=== PATIENT | female | born 1995 | race Caucasian/White ===

== ENCOUNTER 2017-11-04 08:00 | Outpatient (CLI) | payer BC | END 2017-11-04 08:01 | LOC: LAB.N 08:00 | PROVIDERS: ATTEND Obstetrics & Gynecology | DX: Z32.01 Encounter for pregnancy test, result positive (principal) | CPT/HCPCS: 36415; 84702 ==

== ENCOUNTER 2017-11-11 13:35 | Outpatient (CLI) | payer BC | END 2017-11-11 13:36 | LOC: LAB.N 13:35 | PROVIDERS: ATTEND Obstetrics & Gynecology | DX: Z32.01 Encounter for pregnancy test, result positive (principal) | CPT/HCPCS: 36415; 84702 ==

== ENCOUNTER 2017-11-15 21:55 | Outpatient (CLI) | payer BC ==
--- NOTE | 2017-11-15 23:19 | Ultrasound Report ---
EXAM: FIRST TRIMESTER OBSTETRIC ULTRASOUND (Less than 11 weeks) EXAM DATE: 11/15/2017 09:59 PM. CLINICAL HISTORY: Pain LMP: 09/18/2017. COMPARISONS: None. TECHNIQUE: Transabdominal and transvaginal ultrasound examination with static image documentation. CLINICAL DATES: EGA 8 weeks 2 days with IKE 06/25/2018 based on LMP. ASSESSMENT: Gestational Sac: Single intrauterine. Mean gestational sac diameter: 40 mm = 9 weeks 3 days. Embryo: CRL (crown-rump length) 8.6 mm = 7 weeks 0 days. Cardiac activity: 128 beats per minute. Yolk sac: Not visualized. Amniotic fluid: Not accurately assessed at this gestational age. Early placenta: Not visible at this gestational age. Other: No perigestational fluid collection demonstrated. MATERNAL STRUCTURES: Uterus: Anteverted. Unremarkable. Cervix: Closed. Right Ovary/Adnexa: Unremarkable. The ovary measures 3.3 x 3.2 x 2.6 cm, volume 14 cc. Left Ovary/Adnexa: There is a 4.4 cm hemorrhagic cyst in the left ovary, as well as a second, smaller cystic structure, likely representing the corpus luteum.. The ovary measures 5.9 x 5.8 x 4.1 cm, vo lume 73 cc. Free Fluid: None. Other: None. IMPRESSION: 1. Single viable intrauterine at EGA 7 weeks 0 days with IKE 07/04/2018 based on crown-rump length, which is 9 days earlier than expected with clinical dates. 2. Assigned dating is IKE 07/04/2017 based on current ultrasound. Results called to Dr. Dickinson on 11/15/2017 at 11:15 PM. [facility] Referring Provider Line: [phone] SITE ID: [id number]
== END 2017-11-15 21:56 | disposition home or self-care (01) ==
LOC: DI 21:55
PROVIDERS: ATTEND Obstetrics & Gynecology
DX: Z3A.01 Less than 8 weeks gestation of pregnancy (principal)
CPT/HCPCS: 76801; 76817

== ENCOUNTER 2017-12-08 16:49 | Outpatient (CLI) | payer BC ==
--- NOTE | 2017-12-09 10:04 | Ultrasound Report ---
Procedure Date: 12/08/2017 Accession Number: [id number] / [id number] Procedure: US - Pelvic w/Transvaginal CPT Code: FULL RESULT: EXAM: PELVIC ULTRASOUND EXAM DATE: 12/08/2017 06:07 PM. CLINICAL HISTORY: Pelvic and perineal pain. COMPARISON: First trimester obstetric ultrasound 11/15/2017. TECHNIQUE: Realtime transabdominal pelvic scan performed to identify the uterus and adnexa and as an overview of other pelvic structures, followed by transvaginal scan to provide greater detail of the uterus and adnexa, with static image documentation. FINDINGS: Uterus: 9.3 x 4.5 x 3.8 cm, volume 83 cc. Anteverted position. Normal overall size and echotexture. Masses: None. Endometrium: 9 mm. 2 foci of posterior endometrial vascularity are noted, one of which extends into posterior myometrium on color Doppler image 50. Spectral Doppler imaging of the hyperemic endometrial regions was not performed. Multiple small echogenic foci along the endometrium. Cervix: Unremarkable. Right Ovary: 3.3 x 2.8 x 2.2 cm, volume 11 cc. 1.2 x 0.7 x 0.6 cm corpus albicans or collapsed follicle. Numerous small peripheral follicles. Normal echotexture and blood flow. Left Ovary: Left ovary was not definitively identified. There is a large, heterogeneous left adnexal abnormality measuring 10.1 x 5.5 x 6.7 cm, 195 cc. Please see image 92 which demonstrates this abnormality contains at least two internal cystic areas, the larger cystic area measuring up to 4 x 3.4 cm. Color Doppler image 99 does not show significant vascularity within the left adnexal region. Free Fluid: Small amount of free fluid in cul-de-sac is likely physiologic. Other: None. IMPRESSION: 1. Large 10 cm left adnexal abnormality is worrisome for torsion. Ectopic would be less likely, given documented intrauterine on prior ultrasound and absence of in vitro fertilization. Present appearance is not typical for hemorrhagic ovarian cyst. 2. Areas of increased echogenicity and hyperemia along posterior myometrium, one of the areas of vascularity extends into posterior myometrium. Findings may be due to uterine arteriovenous malformation or retained products of conception. Recommend clinical correlation. 3. Prominent number of small peripheral right ovarian follicles, potential polycystic ovary morphology. CRITICAL RESULT: The findings were discussed with Dr. Moffett on 12/09/2017 at 9:48 AM. [facility]
== END 2017-12-08 16:50 | disposition home or self-care (01) ==
LOC: DI 16:49
PROVIDERS: ATTEND Registered Nurse
DX: R93.8 Abnormal findings on diagnostic imaging of other specified body structures (principal); R10.2 Pelvic and perineal pain; Z64.0 Problems related to unwanted pregnancy
CPT/HCPCS: 36415; 76830; 76856; 84702

== ENCOUNTER 2017-12-10 12:29 | Outpatient (CLI) | payer BC ==
[2017-12-10 13:00] LABS: BASOPHILS % (AUTO) 0.5 %; EOSINOPHILS # (AUTO) 0.1 10^3/uL (0.0-0.7); EOSINOPHILS % (AUTO) 1.5 %; HGB - HEMOGLOBIN 14.3 g/dL (12.0-16.0); LYMPHOCYTES # (AUTO) 3.5 10^3/uL (1.5-3.5); LYMPHOCYTES % (AUTO) 53.2 %; MEAN CORPUSCULAR HEMOGLOBIN 31.2 pg (27.0-31.0); MEAN CORPUSCULAR HGB CONC 34.3 g/dL (32.0-36.0); MEAN CORPUSCULAR VOLUME 90.9 fL (81.0-99.0); MEAN PLATELET VOLUME 6.7 fL (7.9-10.8); MONOCYTES # (AUTO) 0.7 10^3/uL (0.0-1.0); MONOCYTES % (AUTO) 10.1 %; NEUTROPHILS # (AUTO) 2.3 10^3/uL (1.5-6.6); NEUTROPHILS % (AUTO) 34.7 %; PLT - PLATELET COUNT 309 10^3/uL (130-450); RED BLOOD COUNT 4.59 10^6/uL (4.20-5.40); RED CELL DISTRIBUTION WIDTH 12.7 % (12.0-15.0); WHITE BLOOD COUNT 6.6 x10^3/uL (4.8-10.8)
[2017-12-10 14:28] LABS: ALBUMIN 3.9 g/dL (3.2-5.5); ALBUMIN/GLOBULIN RATIO 1.2 (1.0-2.2); BILIRUBIN,TOTAL 1.2 mg/dL (0.2-1.0); CREATININE 0.7 mg/dL (0.4-1.0); TOTAL PROTEIN 7.1 g/dL (6.7-8.2)
== END 2017-12-10 12:30 | disposition home or self-care (01) ==
LOC: LAB 12:29
PROVIDERS: ATTEND Registered Nurse
DX: R19.09 Other intra-abdominal and pelvic swelling, mass and lump (principal)
CPT/HCPCS: 36415; 80053; 84702; 85025; 86304

== ENCOUNTER 2017-12-14 12:04 | Outpatient (CLI) | payer BC ==
[2017-12-14] MEDS ORDERED: IOPAMIDOL-300 100 ML VIAL ONE (12:19)
[2017-12-14] MEDS ORDERED: IOPAMIDOL-300 50 ML VIAL ONE (12:19)
--- NOTE | 2017-12-14 15:21 | CT Report ---
Procedure Date: 12/14/2017 Accession Number: [id number] / [id number] Procedure: CT - Abdomen/Pelvis W/WO CPT Code: FULL RESULT: EXAM: Abdomen/Pelvis W/WO DATE: 12/14/2017 2:07 PM CLINICAL HISTORY: OTHER INTRA-ABDOMIANL PELVIC SWELLING, MASS KIM COMPARISON: Ultrasound 12/08/2017 TECHNIQUE: Routine helical CT imaging was performed through the abdomen and pelvis prior to and following IV contrast. IV contrast: 100 mL Isovue 300. Enteric contrast: Yes. Reconstructions: Coronal and sagittal. In accordance with CT protocol optimization, one or more of the following dose reduction techniques were utilized for this exam: automated exposure control, adjustment of mA and/or KV based on patient size, or use of iterative reconstructive technique. FINDINGS: Lung Bases: Unremarkable. Liver: Normal. No masses. Gallbladder/Bile Ducts: Unremarkable. Spleen: Normal. Pancreas: Normal. Adrenal Glands: Normal. Kidneys: Normal. No masses or hydronephrosis. Peritoneal Cavity/Bowel: Normal. No free fluid, free air or adenopathy. No masses or acute inflammatory process. The appendix is well visualized and normal. Pelvic Organs: There is a an 8.9 x 6.2 x 4.5 cm teratoma involving the left ovary, demonstrating fat, soft tissue, and calcification. The uterus and right ovary appear unremarkable. No free fluid or adenopathy. Vasculature: No aneurysms or other significant abnormality. Bones: No significant abnormality. Other: None. 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 Normal uterus and right ovary. RADIA
[2017-12-14] MEDS ORDERED: IOPAMIDOL-300 100 ML VIAL IVP ONE (15:55)
[2017-12-14] MEDS ORDERED: IOPAMIDOL-300 50 ML VIAL PO ONE (15:55)
== END 2017-12-14 12:05 | disposition home or self-care (01) ==
LOC: DI 12:04
PROVIDERS: ATTEND Registered Nurse
DX: R19.09 Other intra-abdominal and pelvic swelling, mass and lump (principal); D27.1 Benign neoplasm of left ovary
CPT/HCPCS: 74178; Q9967

== ENCOUNTER 2017-12-21 14:52 | Outpatient (CLI) | payer BC ==
[2017-12-21 15:07] LABS: BASOPHILS % (AUTO) 0.4 %; EOSINOPHILS # (AUTO) 0.1 10^3/uL (0.0-0.7); EOSINOPHILS % (AUTO) 1.4 %; HGB - HEMOGLOBIN 14.7 g/dL (12.0-16.0); LYMPHOCYTES # (AUTO) 3.7 10^3/uL (1.5-3.5); LYMPHOCYTES % (AUTO) 49.1 %; MEAN CORPUSCULAR HEMOGLOBIN 31.2 pg (27.0-31.0); MEAN CORPUSCULAR HGB CONC 34.3 g/dL (32.0-36.0); MEAN CORPUSCULAR VOLUME 91.1 fL (81.0-99.0); MEAN PLATELET VOLUME 6.8 fL (7.9-10.8); MONOCYTES # (AUTO) 0.7 10^3/uL (0.0-1.0); MONOCYTES % (AUTO) 8.9 %; NEUTROPHILS % (AUTO) 40.2 %; PLT - PLATELET COUNT 282 10^3/uL (130-450); RED CELL DISTRIBUTION WIDTH 12.5 % (12.0-15.0); WHITE BLOOD COUNT 7.6 x10^3/uL (4.8-10.8)
[2017-12-21 15:29] LABS: BILIRUBIN,URINE NEGATIVE (NEGATIVE); GLUCOSE, URINE (UA) NEGATIVE (NEGATIVE); KETONES,URINE (UA) NEGATIVE (NEGATIVE); LEUKOCYTE ESTERASE, URINE NEGATIVE (NEGATIVE); NITRITE,URINE NEGATIVE (NEGATIVE); OCCULT BLOOD,URINE MODERATE (NEGATIVE); PROTEIN,URINE NEGATIVE (NEGATIVE); UROBILINOGEN,URINE 0.2 (NORMAL) E.U./dL (NORMAL)
[2017-12-21 15:30] LABS: HCG,QUALITATIVE BLOOD POSITIVE
[2017-12-21 15:31] LABS: CLARITY,URINE CLEAR (CLEAR)
== END 2017-12-21 14:53 | disposition home or self-care (01) ==
LOC: LAB 14:52
PROVIDERS: ATTEND Obstetrics & Gynecology
DX: D27.1 Benign neoplasm of left ovary (principal)
CPT/HCPCS: 36415; 81003; 84703; 85025; 86850; 86900; 86901

== ENCOUNTER 2017-12-23 10:43 | Day surgery (SDC) | payer BC ==
--- NOTE | 2017-12-21 08:31 | PREOP HISTORY & PHYSICAL ---
DATE OF SERVICE: 12/23/2017 Physician: Omi Mack MD PREOPERATIVE HISTORY AND PHYSICAL ON 12/17/2017 FOR ANTICIPATED DATE OF PROCEDURE 12/23/2017 PREOPERATIVE DIAGNOSIS: Left ovarian teratoma. INTENDED PROCEDURE: Laparoscopic oophorectomy, possible laparotomy - date to be announced. HISTORY OF PRESENT ILLNESS: This patient is a 22-year-old , 1 , para 0-0-1-0, woman who underwent recent elective medical termination that proceeded uneventfully, except postoperatively it was noted that she had a persistent pelvic nontender, palpable mass. Ultrasound documented a left 10 cm heterogeneous mass that was suspected to be possible risk for torsion. The mass could not be clearly delineated, and so CT scan was obtained that documented a 10 x 5 x 4 cm heterogeneous mass with a signature consistent with a teratoma. Physical examination found the mass to be somewhat fixed. The echo signature did not show torsion at the current time. Otherwise, there were findings consistent with recent . Normal menses q. 29-31 days. Age of menarche 10. Contraceptive type: IUD placed on 12/07/2017. Recent Pap smear 01/18/2017 normal. PAST MEDICAL HISTORY: Patient denies cardiovascular or pulmonary problems. She does have a history of occasional eczema and acne, but this is not problematic. Patient hospitalized for sprained neck in 1997. PAST SURGICAL HISTORY: Appendectomy 07/2016. Birthmark removal prior to that. ALLERGIES: NO KNOWN DRUG ALLERGIES. MEDICATIONS: None. FAMILY HISTORY: Asthma. No gynecologic malignancy history. Diabetes. SOCIAL HISTORY: Former smoker, about half a pack a day since the age of 14 but quit 9 months ago. Alcohol: Social alcohol use. Drugs: No recreational drug use. Unemployed, some college education. REVIEW OF SYSTEMS CONSTITUTIONAL: Negative. HEENT: Negative. CARDIOVASCULAR: Negative. RESPIRATORY: Negative. GASTROINTESTINAL: Negative. GENITOURINARY: Reference HPI. MUSCULOSKELETAL: Negative. SKIN: Negative. BREASTS: Negative. NEUROLOGIC: Negative. PSYCHIATRIC: Negative IMMUNE/HEMATOLOGIC: Patient denies easy bruising or bleeding tendencies. PHYSICAL EXAMINATION GENERAL: Well groomed, pleasant. VITAL SIGNS: Posted. HEENT: Supple neck. No thyromegaly. Dentition in good repair. LUNGS: Clear to auscultation. CARDIOVASCULAR: Regular. No murmur, no gallop, rub. BREASTS: Deferred. ABDOMEN: Soft, nontender. No organomegaly. GENITOURINARY: External normal. Vagina: No blood or discharge. Cervix: Normal appearing. Uterus: Seems enlarged, 12-week size with contiguous retrouterine mass, nontender. Adnexae: Right ovary palpable; left ovary, ovarian fossa empty. MUSCULOSKELETAL: Negative. SKIN: Negative. NEUROLOGIC: Grossly intact. LABORATORY/DATA: Preop labs pending. ASSESSMENT: Patient has a known 10 cm heterogeneous left ovarian mass that seems consistent with teratoma. It appears to be adherent to the back wall of the uterus and may require dissection. Laparoscopic approach would be appropriate, particularly if catch bag can be obtained and the mass drained initially and then removed through an extended side port incision. There is a decreased possibility of malignancy, CA-125 is normal. Malignancy risk is probably less than 3%. PLAN: I discussed the diagnosis, causes, findings and intended procedure in detail. Patient is aware of the benefits and risks inclusive of bleeding, transfusion, infection , damage to urinary tract, damage to intestines, and possibility of tumor spillage. She also understands that a mini laparotomy may be necessary to remove this mass without spillage. Continuation poses risk of rupture, which, given the substance of most teratomas , causes extensive inflammation, acute abdomen, and possible infertility. TD: 12/17/2017 08:35 JALEEL
[2017-12-23] MEDS ORDERED: LACTATED RINGERS 1,000 ML IV ONE ×3 (11:01→15:23)
[2017-12-23] MEDS ORDERED: BUPIVACAINE 0.25%-EPI 1:200000 PF 30 ML VIAL ONE ×2 (11:40→15:15)
[2017-12-23] MEDS ORDERED: KETOROLAC 30 MG/ML VIAL IVP ONE (12:56)
[2017-12-23] MEDS ORDERED: NEOSTIGMINE 1 MG/1 ML 10 ML MDV IVP ONE (12:56)
[2017-12-23] MEDS ORDERED: ONDANSETRON 4 MG/2 ML VIAL IVP ONE (12:56)
[2017-12-23] MEDS ORDERED: MIDAZOLAM 2 MG/2 ML VIAL IVP ONE (12:56)
[2017-12-23] MEDS ORDERED: ROCURONIUM 50 MG/5 ML VIAL IVP ONE (12:56)
[2017-12-23] MEDS ORDERED: PROPOFOL 200 MG/20 ML VIAL IVP ONE (12:56)
[2017-12-23] MEDS ORDERED: DEXAMETHASONE 4 MG/ML VIAL IVP ONE (12:56)
[2017-12-23] MEDS ORDERED: fentaNYL 100 MCG/2 ML VIAL IVP ONE (12:56)
[2017-12-23] MEDS ORDERED: LIDOCAINE-MPF 2% 5 ML VIAL IM ONE (12:56)
[2017-12-23] MEDS ORDERED: GLYCOPYRROLATE 1 MG/5 ML VIAL IVP ONE (12:56)
[2017-12-23] MEDS ORDERED: BUPIVACAINE 0.25%-EPI 1:200000 PF 30 ML VIAL SUBQ ONE ×2 (13:07)
[2017-12-23] MEDS ORDERED: GENTAMICIN 80 MG/2 ML VIAL ONE (14:25)
--- NOTE | 2017-12-23 15:45 | OPERATIVE REPORT ---
Operative Report - General Planned Procedure: Laparoscopy with left oophorectomy Pre-Op Diagnosis: 10 cm left ovarian mass, benign teratoma Procedure Performed: Laparoscopic left oophorectomy with left salpingectomy Post Op Diagnosis: Same as above - Procedure Note Primary Surgeon: Omi Mack MD Anesthesia Provider: Paulo Goncalves, certified nurse cnc machinist 2nd shift Anesthesia Technique: General ET tube Pathology: Left ovary and tube. IV Fluids (mL): 1,200 Estimated Blood Loss (mL): 10 Urine Output (mL): 200 (Clear) Drain/Tube Type: Other (Juarez catheter) Complications: None.
[2017-12-23] MEDS ORDERED: ACETAMINOPHEN 1,000 MG/100 ML 100 ML IV ONE (15:49)
[2017-12-23] MEDS ORDERED: HYDROmorphone 0.5 MG/0.5 ML SYRINGE ONE (16:03)
[2017-12-23] MEDS: oxyCOD/ACETAMIN 5 MG/325 MG TABLET PO ONE ×2 (17:50→17:51)
[2017-12-23] MEDS ORDERED: ONDANSETRON 4 MG/2 ML VIAL IVP PRN (18:02)
[2017-12-23] MEDS ORDERED: HYDROmorphone 0.5 MG/0.5 ML SYRINGE IVP PRN ×2 (18:02→18:04)
[2017-12-23 18:11] VITALS: BP 119/79
[2017-12-23] MEDS: IBUPROFEN 600 MG TABLET PO SCH ×2 (18:45→23:51)
[2017-12-23] MEDS: LACTATED RINGERS 1,000 ML IV SCH (18:48)
--- NOTE | 2017-12-23 19:00 | OPERATIVE REPORT ---
DATE OF SERVICE: 12/23/2017 Physician: Omi Mack MD PREOPERATIVE DIAGNOSIS: A 10 cm left ovarian mass with Ultrasound echo and CT scan characteristics of benign teratoma. POSTOPERATIVE DIAGNOSIS: A 10 cm left ovarian mass with physical characteristics of benign teratoma. PROCEDURE: Laparoscopic left oophorectomy; left salpingectomy due to devitalized tube. SURGEON: Omi Mack MD, FACOG, FICS ANESTHESIA: Paulo Goncalves, certified nurse diesel powerplant supervisor ANESTHESIA TYPE: General, ET tube placed. PATHOLOGY 1. Left tube. 2. Left ovarian tubal segment. COMPLICATIONS: None. ESTIMATED BLOOD LOSS: 10 mL. IV FLUIDS: 1200. URINE OUTPUT: 200 clear. DRAINS: Juarez catheter to gravity. FINDINGS: Exam under anesthesia finds a large bulky tumor under the uterus that seems mobile. Laparoscopic exam finds a 10 x 4 x 5 cm smooth, enlarged ovarian mass. There are no tumor excrescences. The left tube is contiguous with the ovary. The ovary on opening had hair lipid material and possible thyroid tissue. Post-oophorectomy, the tube was structurally intact but became bethea and black or dark at the tip. Tube was judged to be devitalized. TECHNIQUE: Prior to the procedure, I met the patient and her mother in the preoperative holding room. We reviewed the pathology, ultrasound, and CT scan together. We reviewed the diagnosis and indications for surgery. Risks and benefits of laparoscopic surgery were reviewed. The patient understands that due to the tumor size, laparotomy may be necessary. Patient signed appropriate informed consent. Patient was brought in the operating room and placed in the supine position for administration of general anesthesia. She was uneventfully induced and intubated. She was moved to the low dorsal lithotomy position. She was prepped and draped in the customary sterile fashion, including a Juarez catheter and uterine manipulator. Exam under anesthesia was conducted. Timeout briefing was done per protocol. A small incision was placed under the umbilical skin fold and a 5 mm trocar was uneventfully placed into the abdomen. Next, right and left operating ports were placed, 5 mm Visiport trocars. The abdomen was assessed and photographed. The inferior portion of the left ovarian uterine ligament was desiccated and divided with LigaSure. This created a handle of tissue that could be used to maneuver the dermoid tumor. A 12 mm operating port was then placed in the left lower quadrant for oophorectomy. Site Lead held the tube away from the ovary. The tube was very close to the ovary and drawing part of most of the blood flow. The infundibulopelvic ligament and ovarian vessels were desiccated and divided. We continued medially to continue the dissection with LigaSure until the uterosacral ligament void was encountered. This completely mobilized the ovary. Next, a catch bag was placed into the abdomen and the ovary placed into the catch bag. The top of the ovary exceeded the size of the catch bag slightly. The catch bag was held in the vertical, so that any drainage would be caught. Using a monopolar cautery, an opening was made in the ovary. A suction was used to decompress the ovary. Additionally, a course needle aspiration was done removing the lipoid material. Next, the catch bag was firmly cinched and brought through the 12 mm port on the left hand side. The size of the residual tumor was much larger than the 12 mm port opening. Therefore, it was widened a total of 3 cm more to create a suitable exit port. The catch bag was then partially passed through the opening. The bag was opened so that no contents would spill into any wound. The teratoma then was methodically morcellated. At the end, the size was large enough to pass through the mini laparotomy void. At this point, we changed all instruments and gloves. The fascial wound was closed with interrupted sutures of 2-0 Vicryl. The wound void was doubly lavaged with gentamicin-enriched irrigant. The deep space was closed with interrupted stitches of 3-0 Vicryl. The skin was closed with a running subcuticular stitch of 4-0 Monocryl. Additional 0.25% Marcaine with epinephrine was injected into the wound. The abdomen was reinsufflated and inspected. The left tube was fairly devascularized during the oophorectomy procedure. It began to darken and was not vital. Therefore, at mid isthmic portion, the tube was desiccated and divided with LigaSure. The tube was then removed through the 5 mm port. Next, the abdomen and pelvis were lavaged with 2600 mL of warm normal saline. Approximately 700 mL was left intraabdominal. All extra CO2 gas was vented from the patient with her in a slight Trendelenburg. Trocars were removed. Skin wounds were closed with interrupted stitches of 4-0 Monocryl and dressed with Dermabond. Additional Marcaine was injected into all the wound sites for comfort. A total of 35 mL of Marcaine were placed into the wounds. At the termination of the procedure, all sponge, needle and instrument counts were confirmed as correct. The HUMI manipulator was removed. The patient was uneventfully awakened from general anesthesia and sent to the recovery room in stable condition. The patient and parent were apprised of intraoperative events. TD: 12/23/2017 17:06 JALEEL
[2017-12-23] MEDS: oxyCOD/ACETAMIN 5 MG/325 MG TABLET PO PRN (19:45)
[2017-12-24] MEDS: oxyCOD/ACETAMIN 5 MG/325 MG TABLET PO PRN (02:42)
[2017-12-24] MEDS: LACTATED RINGERS 1,000 ML IV SCH (02:43)
[2017-12-24] MEDS: IBUPROFEN 600 MG TABLET PO SCH (05:50)
== END 2017-12-24 06:30 | disposition home or self-care (01) ==
LOC: SDS 10:43 → OBS 15:00 → SDS 12-24 06:30
PROVIDERS: ATTEND Obstetrics & Gynecology
PROC: 0UB64ZZ Excision of Left Fallopian Tube, Percutaneous Endoscopic Approach (ICD-10-PCS; 2017-12-23)
PROC: 0UT14ZZ Resection of Left Ovary, Percutaneous Endoscopic Approach (ICD-10-PCS; principal; 2017-12-23 13:07)
DX: D27.1 Benign neoplasm of left ovary (principal); N83.8 Other noninflammatory disorders of ovary, fallopian tube and broad ligament; Z97.5 Presence of (intrauterine) contraceptive device; Z87.891 Personal history of nicotine dependence
CPT/HCPCS: 58661; A9270; J0131; J1170; J1580; J7120

== ENCOUNTER 2017-12-28 11:04 | Emergency (ER) | payer BC ==
--- NOTE | 2017-12-28 11:39 | ED Physician Documentation ---
History of Present Illness - Stated complaint Stated Complaint: LEG PX POST SURG - Chief complaint Chief Complaint: Ext Problem - Additonal information Additional information: hx from pt 22 f 5 days 2/p L oopherectony for large teratoma has had electric like pains and numb patch to ant lat L thigh since post op day 1 no CP or SOA Review of Systems Constitutional: denies: Fever Cardiac: denies: Chest pain / pressure, Palpitations Respiratory: denies: Dyspnea GI: denies: Abdominal Pain Musculoskeletal: reports: Extremity pain Endocrine: denies: Easy bruising / bleeding Immunocompromised: denies: Immunocompromised PD PAST MEDICAL HISTORY - Past Medical History Past Medical History: No - Past Surgical History Past Surgical History: Yes 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 - Present Medications Home Medications: Ambulatory Orders Medication Instructions Recorded Confirmed Ibuprofen [Motrin] 400 mg PO Q6H 12/28/17 12/28/17 oxyCODONE [Roxicodone] 5 mg PO Q4-6H 12/28/17 12/28/17 predniSONE [Deltasone] 40 mg PO DAILY 5 Days tablet 12/28/17 - Allergies Allergies/Adverse Reactions: Allergies Allergy/AdvReac Type Severity Reaction Status Date / Time No Known Drug Allergies Allergy Verified 12/28/17 11:13 - Social History Does the pt smoke?: No Smoking Status: Former smoker Does the pt drink ETOH?: Yes ETOH Use: Wine Does the pt have substance abuse?: No - Immunizations Immunizations are current?: Yes - POLST Patient has POLST: No PD ED PE NORMAL - Vitals Vital signs reviewed: Yes - Cardiac Cardiac: RRR - Abdomen Abdomen: Soft, Other (TTP but pt states improving post op) - Back Back: Other (no spinal epidural sotes identified, no focal redness swellign warmth pain etc) - Derm Derm: Normal color - Extremities Extremities: Other (no edema, TTP anterior thight, mo calf popliteal TTP, MSV intact, no rash) Results - Vitals Vitals: Vital Signs - 24 hr 12/28/17 11:10 Temperature 36.6 C Heart Rate 69 Respiratory 18 Rate Blood Pressure 115/59 L O2 Saturation 98 Oxygen O2 Source Room air - Labs Labs: Laboratory Tests 12/28/17 11:30 Urine Color YELLOW Urine Clarity CLEAR Urine pH 6.5 Ur Specific [place] 1.010 Urine Protein NEGATIVE Urine Glucose (UA) NEGATIVE Urine Ketones NEGATIVE Urine Occult Blood LARGE H Urine Nitrite NEGATIVE Urine Bilirubin NEGATIVE Urine Urobilinogen 0.2 (NORMAL) Ur Leukocyte Esterase TRACE H Urine RBC 0-5 Urine WBC 0-3 Ur Squamous Epith Cells MOD Squamous H Amorphous Sediment Few Urine Bacteria Rare Ur Microscopic Review INDICATED Urine Culture Comments NOT INDICATED - Rads (name of study) duplex Radiology: See rad report (no DVT) PD MEDICAL DECISION MAKING - Sepsis Event Vital Signs: Vital Signs - 24 hr 12/28/17 11:10 Temperature 36.6 C Heart Rate 69 Respiratory 18 Rate Blood Pressure 115/59 L O2 Saturation 98 Oxygen O2 Source Room air Departure - Departure Disposition: Home, Self Care Clinical Impression: Sciatica Qualifiers: Laterality: left Qualified Code(s): M54.32 - Sciatica, left side Condition: Good Instructions: ED Sciatica Follow-Up: Omi Mack MD [Provider Admit Priv/Credential] - Prescriptions: predniSONE [Deltasone] 40 mg PO DAILY 5 Days tablet Comments: Thankfully the ultrasound did not show any blood clots due to your surgery I think the electric pains in your thigh may be due to sciatica. I think that a course of steroids to decrease the nerve inflammation will help relieve your pain You can also take your percocet as needed Please follow up with Dr Mack And return to the ER if worse
[2017-12-28 12:03] LABS: BILIRUBIN,URINE NEGATIVE (NEGATIVE); GLUCOSE, URINE (UA) NEGATIVE (NEGATIVE); KETONES,URINE (UA) NEGATIVE (NEGATIVE); LEUKOCYTE ESTERASE, URINE TRACE (NEGATIVE); NITRITE,URINE NEGATIVE (NEGATIVE); OCCULT BLOOD,URINE LARGE (NEGATIVE); PH,URINE 6.5 PH (5.0-7.5); PROTEIN,URINE NEGATIVE (NEGATIVE); UROBILINOGEN,URINE 0.2 (NORMAL) E.U./dL (NORMAL)
[2017-12-28 12:04] LABS: CLARITY,URINE CLEAR (CLEAR)
[2017-12-28 12:58] LABS: BACTERIA,URINE Rare /HPF (None Seen); RBC,URINE 0-5 /HPF (0-5); SQUAMOUS EPITHELIAL CELL,UR MOD Squamous (<= Few)
[2017-12-28 12:59] LABS: AMORPHOUS SEDIMENT,UR Few /LPF
--- NOTE | 2017-12-28 13:11 | Ultrasound Report ---
Procedure Date: 12/28/2017 Accession Number: [id number] / [id number] Procedure: US - Duplex Ext Veins Left CPT Code: FULL RESULT: EXAM: Duplex Ext Veins Left DATE: 12/28/2017 1:02 PM CLINICAL HISTORY: post op LLE pain COMPARISON: None. TECHNIQUE: Real-time sonographic vascular imaging was performed by the salon professional through the lower extremities utilizing both color-flow and Doppler spectral analysis. Multiple installation service representative static images were saved for review. FINDINGS: Left: Common Femoral Vein (CFV): Normal. [Profunda Femoral Vein (PFV): Normal. Superficial Femoral Vein (SFV) Prox: Normal. Superficial Femoral Vein (SFV) Mid: Normal. Superficial Femoral Vein: (SFV) Dist: Normal. Popliteal Vein: Normal. Posterior Tibial Veins: Normal. Peroneal Veins: Normal. Other: None. IMPRESSION: Normal. No evidence for deep venous thrombosis. [facility]
[2017-12-28 14:57] VITALS: BP 105/68
== END 2017-12-28 15:08 | disposition home or self-care (01) ==
LOC: ED 11:04
DX: M54.32 Sciatica, left side (principal); Z87.891 Personal history of nicotine dependence
CPT/HCPCS: 81001; 81003; 87086; 99283

== ENCOUNTER 2018-05-13 23:38 | Emergency (ER) | payer BC ==
--- NOTE | 2018-05-13 23:48 | ED Physician Documentation ---
PD HPI FEMALE - Stated complaint Stated Complaint: FEMALE - Chief complaint Chief Complaint: Abd Pain - History obtained from History obtained from: Patient - History of Present Illness Timing - onset: Yesterday Timing - details: Abrupt onset Pain level max: 4 Associated symptoms: Fever (Tmax 99.2), Pelvic pain (cramping) Recently seen: Clinic - Additional information Additional information: Patient complains of bad cramps (per patient), Pelvic cramping pain since yesterday that has been progressive. She has had vaginal bleeding times one week. shes saw her OBGYN a few days ago, patient said she had blood work which was unremarkable in results and it was recommended she get an ultrasound. However, she has not been able to schedule this ultrasound yet. 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 Review of Systems Constitutional: reports: Fever (Tmax 99.2), Chills, Sweats Nose: reports: Congestion Throat: reports: Sore throat Respiratory: reports: Cough. 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) - Past Surgical History Past Surgical History: Yes General: Appendectomy /SALES ENGAGEMENT MANAGER: Oophrectomy - Present Medications Home Medications: Ambulatory Orders Medication Instructions Recorded Confirmed Ibuprofen [Motrin] 400 mg PO Q6H 12/28/17 12/28/17 oxyCODONE [Roxicodone] 5 mg PO Q4-6H 12/28/17 12/28/17 predniSONE [Deltasone] 40 mg PO DAILY 5 Days tablet 12/28/17 traMADol [Ultram] 50 - 100 mg PO Q6H PRN #20 tablet 05/14/18 - Allergies Allergies/Adverse Reactions: Allergies Allergy/AdvReac Type Severity Reaction Status Date / Time No Known Drug Allergies Allergy Verified 05/13/18 23:47 - Social History Does the pt smoke?: No Smoking Status: Former smoker Does the pt drink ETOH?: Yes Does the pt have substance abuse?: No - Immunizations Immunizations are current?: Yes - POLST Patient has POLST: No PD ED PE NORMAL - Vitals Vital signs reviewed: Yes - General General: Alert and oriented X 3, No acute distress, Well developed/nourished - Cardiac Cardiac: RRR, No murmur - Respiratory Respiratory: No respiratory distress, Clear bilaterally - Abdomen Abdomen: Normal bowel sounds, Soft, Non tender, Non distended - Back Back: No CVA TTP Results - Vitals Vitals: Vital Signs - 24 hr 05/13/18 05/14/18 05/14/18 23:45 00:02 01:38 Temperature 36.8 C Heart Rate 108 H Respiratory 17 17 16 Rate Blood Pressure 125/80 O2 Saturation 99 05/14/18 05/14/18 05/14/18 02:30 02:40 04:05 Temperature Heart Rate 101 H 88 Respiratory 17 17 16 Rate Blood Pressure 115/74 O2 Saturation 96 Oxygen O2 Source Room air - Labs Labs: Laboratory Tests 05/13/18 05/13/18 05/14/18 23:58 23:58 00:15 WBC 9.8 RBC 4.65 Hgb 14.7 Hct 42.0 MCV 90.4 MCH 31.6 H MCHC 35.0 RDW 12.8 Plt Count 357 MPV 6.8 L Neut # (Auto) 4.6 Lymph # (Auto) 4.1 H [place] # (Auto) 0.8 Eos # (Auto) 0.2 Baso # (Auto) 0.1 Absolute Nucleated RBC 0.00 Nucleated RBC % 0.0 Sodium Potassium Chloride Carbon Dioxide Anion Gap BUN Creatinine Estimated GFR (MDRD) Glucose Calcium Total Bilirubin AST ALT Alkaline Phosphatase Total Protein Albumin Globulin Albumin/Globulin Ratio Lipase Urine Color YELLOW Urine Clarity CLEAR Urine pH 6.0 Ur Specific [place] <=1.005 <=1.005 Urine Protein NEGATIVE Urine Glucose (UA) NEGATIVE Urine Ketones NEGATIVE Urine Occult Blood SMALL H Urine Nitrite NEGATIVE Urine Bilirubin NEGATIVE Urine Urobilinogen 0.2 (NORMAL) Ur Leukocyte Esterase TRACE H Urine RBC 0-5 Urine WBC 0-3 Ur Squamous Epith Cells NONE SEEN Urine Bacteria None Seen Ur Microscopic Review INDICATED Urine Culture Comments INDICATED Urine HCG, Qual NEGATIVE 05/14/18 00:15 WBC RBC Hgb Hct MCV MCH MCHC RDW Plt Count MPV Neut # (Auto) Lymph # (Auto) [place] # (Auto) Eos # (Auto) Baso # (Auto) Absolute Nucleated RBC Nucleated RBC % Sodium 144 Potassium 3.6 Chloride 105 Carbon Dioxide 28 Anion Gap 11.0 BUN 10 Creatinine 0.6 Estimated GFR (MDRD) 122 Glucose 99 Calcium 9.4 Total Bilirubin 0.6 AST 21 ALT 22 Alkaline Phosphatase 54 Total Protein 8.1 Albumin 4.2 Globulin 3.9 Albumin/Globulin Ratio 1.1 Lipase 28 Urine Color Urine Clarity Urine pH Ur Specific [place] Urine Protein Urine Glucose (UA) Urine Ketones Urine Occult Blood Urine Nitrite Urine Bilirubin Urine Urobilinogen Ur Leukocyte Esterase Urine RBC Urine WBC Ur Squamous Epith Cells Urine Bacteria Ur Microscopic Review Urine Culture Comments Urine HCG, Qual - Rads (name of study) pelvic/TV US Radiology: Prelim report reviewed, See rad report KUB xray Radiology: Prelim report reviewed, See rad report PD MEDICAL DECISION MAKING - ED course Complexity details: reviewed results, re-evaluated patient, considered differential, d/w patient Departure - Departure Disposition: 01 Home, Self Care Clinical Impression: Pelvic pain, Ovarian cyst Condition: Good Instructions: ED Cyst Ovarian, ED Pelvic Pain [facility] Follow-Up: Omi Mack MD [Provider Admit Priv/Credential] - Prescriptions: traMADol [Ultram] 50 - 100 mg PO Q6H PRN #20 tablet PRN Reason: Pain Discharge Date/Time: 05/14/18 04:05
[2018-05-14 00:03] LABS: BILIRUBIN,URINE NEGATIVE (NEGATIVE); CLARITY,URINE CLEAR (CLEAR); GLUCOSE, URINE (UA) NEGATIVE (NEGATIVE); KETONES,URINE (UA) NEGATIVE (NEGATIVE); LEUKOCYTE ESTERASE, URINE TRACE (NEGATIVE); NITRITE,URINE NEGATIVE (NEGATIVE); OCCULT BLOOD,URINE SMALL (NEGATIVE); PROTEIN,URINE NEGATIVE (NEGATIVE); UROBILINOGEN,URINE 0.2 (NORMAL) E.U./dL (NORMAL)
[2018-05-14 00:07] LABS: HCG UR QUAL NEGATIVE
[2018-05-14 00:10] LABS: BACTERIA,URINE None Seen /HPF (None Seen); RBC,URINE 0-5 /HPF (0-5); SQUAMOUS EPITHELIAL CELL,UR NONE SEEN (<= Few)
[2018-05-14 00:26] LABS: BASOPHILS # (AUTO) 0.1 10^3/uL (0.0-0.1); BASOPHILS % (AUTO) 0.8 %; EOSINOPHILS # (AUTO) 0.2 10^3/uL (0.0-0.7); EOSINOPHILS % (AUTO) 2.2 %; HGB - HEMOGLOBIN 14.7 g/dL (12.0-16.0); LYMPHOCYTES # (AUTO) 4.1 10^3/uL (1.5-3.5); MEAN CORPUSCULAR HEMOGLOBIN 31.6 pg (27.0-31.0); MEAN CORPUSCULAR VOLUME 90.4 fL (81.0-99.0); MEAN PLATELET VOLUME 6.8 fL (7.9-10.8); MONOCYTES # (AUTO) 0.8 10^3/uL (0.0-1.0); MONOCYTES % (AUTO) 7.9 %; NEUTROPHILS # (AUTO) 4.6 10^3/uL (1.5-6.6); NEUTROPHILS % (AUTO) 47.1 %; PLT - PLATELET COUNT 357 10^3/uL (130-450); RED BLOOD COUNT 4.65 10^6/uL (4.20-5.40); RED CELL DISTRIBUTION WIDTH 12.8 % (12.0-15.0); WHITE BLOOD COUNT 9.8 x10^3/uL (4.8-10.8)
[2018-05-14 00:34] LABS: ALBUMIN 4.2 g/dL (3.2-5.5); ALBUMIN/GLOBULIN RATIO 1.1 (1.0-2.2); BILIRUBIN,TOTAL 0.6 mg/dL (0.2-1.0); CALCIUM 9.4 mg/dL (8.5-10.3); CREATININE 0.6 mg/dL (0.4-1.0); TOTAL PROTEIN 8.1 g/dL (6.7-8.2)
--- NOTE | 2018-05-14 01:26 | Ultrasound Report ---
Reason: pelvic pain, R Procedure Date: 05/14/2018 Accession Number: [id number] / [id number] Procedure: US - Pelvic w/Transvag+Doppler Comp CPT Code: FULL RESULT: EXAM: PELVIC ULTRASOUND EXAM DATE: 05/14/2018 12:31 AM. CLINICAL HISTORY: Pelvic pain, right. COMPARISON: ABDOMEN/PELVIS W/WO 12/14/2017 1:49 PM. TECHNIQUE: Realtime transabdominal pelvic scan performed to identify the uterus and adnexa and as an overview of other pelvic structures, followed by transvaginal scan to provide greater detail of the uterus and adnexa, with static image documentation. FINDINGS: Uterus: 8.1 x 4.3 x 5.4 cm, volume 98.5 cc. Anteverted position. Normal overall size and echotexture. Masses: None. Endometrium: [address] Cervix: Unremarkable. Right Ovary: 6.9 x 3.5 x 3.8 cm, volume 49 cc. Contains a 43 x 24 x 17 mm complex hemorrhagic appearing cyst. Blood flow documented to the adjacent ovarian parenchyma during the study. Left Ovary: Removed. Free Fluid: None. Other: None. IMPRESSION: 1. Enlarged right ovary containing a complex approximately 3.5 cm cyst, likely hemorrhagic. No significant free fluid or other definitive complication seen. 2. Post left oophorectomy. RADIA
[2018-05-14] MEDS ORDERED: traMADol 50 MG TABLET PO STA (02:22)
[2018-05-14 02:31] VITALS: BP 115/74
--- NOTE | 2018-05-14 03:00 | XRAY Report ---
Reason: unable to locate IUD on exam, US Procedure Date: 05/14/2018 Accession Number: [id number] / [id number] Procedure: XR - Abdomen 1 View X-Ray CPT Code: 15875 FULL RESULT: EXAM: ABDOMEN RADIOGRAPHY EXAM DATE: 05/14/2018 02:50 AM. CLINICAL HISTORY: Unable to locate IUD on exam, ultrasound. COMPARISON: None. TECHNIQUE: 1 view. FINDINGS: Bowel Gas Pattern: Within normal limits. No dilated loops. Other: IUD present projecting over the left sacrum. IMPRESSION: IUD present projecting over the left sacrum. RADIA
== END 2018-05-14 04:05 | disposition home or self-care (01) ==
LOC: ED 23:38
DX: R10.2 Pelvic and perineal pain (principal); N83.209 Unspecified ovarian cyst, unspecified side; Z87.891 Personal history of nicotine dependence
CPT/HCPCS: 36415; 74018; 76830; 76856; 80053; 81001; 81025; 83690; 85025; 87086; 93975; 99283; 99284; A9270; 81003

== ENCOUNTER 2018-05-16 12:04 | Outpatient (CLI) | payer BC | END 2018-05-16 12:05 | disposition home or self-care (01) | LOC: LAB.R 12:04 | PROVIDERS: ATTEND Obstetrics & Gynecology | DX: Z11.3 Encounter for screening for infections with a predominantly sexual mode of transmission (principal) | CPT/HCPCS: 87491; 87591 ==